=== PATIENT | female | born 1980 | race Caucasian/White ===

== ENCOUNTER 2024-12-22 19:20 | Emergency (ER) | payer SELFPAY ==
[~2024-12-22] VITALS: Ht 167.6 cm; Wt 69.0 kg
[2024-12-22 19:31] VITALS: BP 121/78; PULSE 102; RESP 16; TEMP 37.1; O2SAT 99
[2024-12-22] MEDS ORDERED: IBUP-2030 MT (19:42)
[2024-12-22] MEDS ORDERED: IBUPROFEN 800MG TABLET PO ONE (19:45)
[2024-12-22] MEDS ORDERED: ACETAMINOPHEN 325MG TABLET PO ONE (19:45)
== END 2024-12-22 21:21 | disposition home or self-care (01) ==
LOC: ER 19:20
DX: M79.671 Pain in right foot (principal); M79.672 Pain in left foot
CPT/HCPCS: 99283